=== PATIENT | female | born 1955 | race Hispanic/Latino ===

== ENCOUNTER 2023-06-09 05:00 | Observation (INO) | payer OTHER ==
[2023-06-04 14:49] LABS: BASOPHILS # (AUTO) 0.02 K/uL (0.00-0.20); BASOPHILS % (AUTO) 0.3 % (0.0-5.0); HEMATOCRIT 41.2 % (36-48); IMMATURE GRANULOCYTE ABSOLUTE 0.02 K/uL (0-1); LYMPHOCYTES % (AUTO) 29.5 % (21.0-51.0); MEAN CORPUSCULAR HEMOGLOBIN 27.7 pg (27.0-33.0); MEAN CORPUSCULAR HGB CONC 31.6 g/dL (32.0-36.0); MEAN CORPUSCULAR VOLUME 87.7 fL (79-99); MONOCYTES # (AUTO) 0.5 K/uL (0.1-1.0); MONOCYTES % (AUTO) 7.6 % (3.0-13.0); NEUTROPHILS # (AUTO) 3.9 K/uL (1.8-7.7); NEUTROPHILS % (AUTO) 59.3 % (40.0-77.0); PLATELET COUNT (AUTO) 211 K/uL (130-400); RED CELL DISTRIBUTION WIDTH 13.9 % (11.0-15.5); WHITE BLOOD COUNT (AUTO) 6.6 K/uL (4.8-10.8)
[2023-06-04 15:02] LABS: INR < 0.93 (0.85-1.15); PROTHROMBIN TIME 10.3 SEC (9.6-11.6)
[2023-06-04 15:03] LABS: PARTIAL THROMBOPLASTIN TIME 29.2 SEC (26.3-35.5)
[2023-06-04 15:21] LABS: CREATININE 0.9 mg/dL (0.5-1.5); POTASSIUM 3.6 mmol/L (3.5-5.1)
[2023-06-04 15:27] VITALS: BP_SYST 144; BP_SYST 150; BP_DIAS 61; BP_DIAS 73; PULSE 68; PULSE 81; RESP 18; RESP 19
[~2023-06-09] VITALS: Ht 157.5 cm; Wt 80.0 kg
[2023-06-09] VITALS (24 sets, daily range): BP systolic 108–178; BP diastolic 44–72; PULSE 66–89; RESP 15–19; O2SAT 96–100
[~2023-06-09 05:00] MED LIST: ALEN35TA53 PO; ERGO500093 PO; PANT40TA54 PO
[2023-06-09] MEDS ORDERED: LACTATED RINGERS 1000ML 1,000 ML IV ONE (06:24)
[2023-06-09] MEDS ORDERED: CEFAZOLIN SODIUM 2 GM VIAL ONE (06:24)
[2023-06-09] MEDS ORDERED: 0.9%NACL 100ML 48.45 ML, ROPIVACAINE 0.5% 5MG/ML 30ML 246.25 MG, KETOROLAC TROMETHAMINE... IV PRN ×5 (07:30)
[2023-06-09] MEDS ORDERED: CEFAZOLIN SODIUM 1 GM VIAL ONE (10:58)
[2023-06-09] MEDS ORDERED: TRANEXAMIC ACID 1000MG/10ML ONE (10:58)
[2023-06-09] MEDS ORDERED: GENTAMICIN SULFATE 80 MG/2 ML VIAL ONE (10:59)
[2023-06-09] MEDS ORDERED: KETAMINE 50MG/ML SYRINGE 50 MG/ML DISP.SYRIN ONE (12:34)
[2023-06-09] MEDS ORDERED: PROPOFOL 10 MG/ML 20ML VIAL IV ONE (12:35)
[2023-06-09] MEDS ORDERED: DIPHENHYDRAMINE HCL 25 MG CAPSULE PO SCH (16:00)
[2023-06-09] MEDS ORDERED: DIPHENOXYLATE HCL/ATROPINE 2.5/0.025 MG TAB PO PRN (16:00)
[2023-06-09] MEDS ORDERED: ONDANSETRON 4MG INJ IVP PRN (16:00)
[2023-06-09] MEDS ORDERED: BENZOCAINE/MENTH/CETYLPYRD CL 1 EACH LOZENGE MM PRN (16:00)
[2023-06-09] MEDS ORDERED: MAG/ALUM/SIMETH 30 ML UDCUP PO PRN (16:00)
[2023-06-09] MEDS ORDERED: HYDROMORPHONE PCA 10 MG/50 ML 50 ML IV PRN (16:00)
[2023-06-09] MEDS ORDERED: DIPHENHYDRAMINE HCL 25 MG CAPSULE PO PRN (16:00)
[2023-06-09] MEDS ORDERED: LACTULOSE 20 GM/30 ML UDCUP PO PRN (16:00)
[2023-06-09] MEDS ORDERED: DiphenhydrAMINE HCL 50 MG/ML VIAL IM PRN (16:00)
[2023-06-09] MEDS ORDERED: KETOROLAC 15MG/ML VIAL (15MG/ML) ONE (16:02)
[2023-06-09] MEDS: 0.9%NACL 1000ML 1,000 ML IV SCH (16:45)
[2023-06-09] MEDS: CLINDAMYCIN IVPB 900MG/50ML IV SCH (21:17)
[2023-06-10] MEDS: 0.9%NACL 1000ML 1,000 ML IV SCH (03:32)
[2023-06-10] MEDS: TRAMADOL HCL 50 MG TABLET PO PRN ×2 (04:25→12:53)
[2023-06-10] MEDS: CLINDAMYCIN IVPB 900MG/50ML IV SCH (04:29)
[2023-06-10 04:37] VITALS: BP 132/57; PULSE 80; RESP 18
[2023-06-10 05:10] LABS: HEMATOCRIT 32.7 % (36-48); MEAN CORPUSCULAR HEMOGLOBIN 27.8 pg (27.0-33.0); MEAN CORPUSCULAR HGB CONC 31.8 g/dL (32.0-36.0); MEAN CORPUSCULAR VOLUME 87.4 fL (79-99); RED BLOOD CELL COUNT(AUTO) 3.74 MIL/uL (4.00-5.50); RED CELL DISTRIBUTION WIDTH 14.1 % (11.0-15.5); WHITE BLOOD COUNT (AUTO) 7.6 K/uL (4.8-10.8)
[2023-06-10 05:14] LABS: CREATININE 0.8 mg/dL (0.5-1.5); POTASSIUM 3.8 mmol/L (3.5-5.1)
[2023-06-10 06:59] VITALS: PULSE 77; RESP 18; O2SAT 97
[2023-06-10 08:00] VITALS: BP 139/54; PULSE 89; RESP 18; O2SAT 99
[2023-06-10] MEDS ORDERED: PANTOPRAZOLE 40 MG TAB DR PO SCH (09:00)
[2023-06-10] MEDS ORDERED: RIVAROXABAN 10 MG TABLET PO SCH (09:00)
[2023-06-10 12:00] VITALS: BP 159/59; PULSE 84; RESP 18
[2023-06-15] MEDS ORDERED: ALENDRONATE SODIUM 35 MG TAB PO SCH (07:00)
== END 2023-06-10 16:30 | disposition home or self-care (01) ==
LOC: DAH 05:00 → DAHIP 05:01 → DAH 05:01 → 4DH 14:59
PROVIDERS: ADMIT Orthopaedic Surgery; ATTEND Orthopaedic Surgery
DX: M17.11 Unilateral primary osteoarthritis, right knee (principal); I10 Essential (primary) hypertension; E78.5 Hyperlipidemia, unspecified; Z90.710 Acquired absence of both cervix and uterus; Z90.89 Acquired absence of other organs; Z88.6 Allergy status to analgesic agent; Z88.8 Allergy status to other drugs, medicaments and biological substances; Z88.1 Allergy status to other antibiotic agents
CPT/HCPCS: 80048 ×2; 85025; 85610; 85730; 36415 ×2; 93005; 87641; 27447; 96365; 96366 ×3; 96368; 97161; 97012; 97530 ×4; 85027; 97116 ×2; A6260; G0378 ×22; A4510; A4663; J7030 ×2; J7120 ×2; A4215 ×2; A4649 ×4; J0690 ×2; J3490 ×4; J1170; J1580; J2704; A6223; C1763 ×2; C1776; A4223; A4222; A4221; A6450; 96367; J1885